=== PATIENT | male | born 1930 | race Caucasian/White ===

== ENCOUNTER 2017-10-14 10:04 | Inpatient (IN) | payer MEDICARE ==
--- NOTE | 2017-10-14 11:02 | RAD ---
PORTABLE CHEST: HISTORY: A patient with lung cancer with cough. COMPARISON: 09/01/2016 study. FINDINGS: Heart size is within normal limits for portable technique with a pacemaker. Bibasilar pleural and pa renchymal lung changes would suggest effusions with bibasilar infiltrates or, less likely, atelectasi s. Changes are not typical for pulmonary edema. IMPRESSION: Bibasilar parenchymal lung changes also with some pleural changes more pronounced on the left base. Changes suggest bibasilar infiltrate. POS: [facility]
[2017-10-14 11:13] LABS: #Lymphocytes 0.9 thou/uL (1.20-3.40); #Monocytes 0.3 thou/uL (0.11-0.59); #Neutrophils 8.3 thou/uL (1.40-6.50); %Basophils 0.2 % (0.0-1.0); %Eosinophils 0.2 % (0.0-10.0); %Lymphocytes 8.9 % (21.0-51.0); %Monocytes 3.5 % (0.0-10.0); %Neutrophils 87.2 % (42.0-75.0); Hemoglobin 12.7 g/dL (14.0-18.0); Mean Corpuscular HGB CONC 32.9 g/dL (32.0-36.0); Mean Corpuscular Hemoglobin 33.2 pg (27.0-31.0); Mean Platelet Volume 11.2 fL (7.4-10.4); Platelet Count 158 thou/uL (130-400); RBC Distribution Width 16.1 % (11.5-14.5); Red Blood Cell (RBC) Count 3.82 mill/uL (4.70-6.10); White Blood Cell (WBC) Count 9.6 thou/uL (4.8-10.8)
[2017-10-14 11:35] LABS: ALT (SGPT) 8 U/L (8-55); AST (SGOT) 22 U/L (5-34); Albumin 3.1 g/dL (3.4-4.8); Alkaline Phosphatase 179 U/L (40-150); Anion Gap 16 mmol/L (10-20); BUN (Urea Nitrogen) 17 mg/dL (8.4-25.7); Bilirubin, Total 1.4 mg/dL (0.2-1.2); Calc. Creatinine Clearance 0 mL/min (70-130); Calcium 9.4 mg/dL (7.8-10.44); Carbon Dioxide 25 mmol/L (23-31); Chloride 102 mmol/L (98-107); Estimated GFR-MDRD 67; Globulin 4.3 g/dL (2.4-3.5); Glucose 111 mg/dL (83-110); Protein, Total 7.4 g/dL (5.8-8.1); Sodium 139 mmol/L (136-145)
[2017-10-14] MEDS ORDERED: Piperacillin/Tazobactam 4.5 GM in Sodium Chloride 0.9% 100 ML IVPB ONE (11:45)
[2017-10-14 11:52] LABS: Bilirubin Negative (Negative); Blood, Urine Large (Negative); Clarity CLOUDY (Clear); Glucose, Urine (Dipstick) Negative (Negative); Leukocyte Moderate (Negative); Nitrite Positive (Negative); Protein, Urine (Dipstick) 30 mg/dL (Neg-Trace); Specific Gravity, Urine 1.021 (1.002-1.036); pH, Urine 6.5 (5.0-9.0)
[2017-10-14 11:55] LABS: Bacteria/HPF 4+ HPF (None Seen); Hyaline Casts/LPF 0-3 HYALINE CAST LPF (0-3 Hyaline); Squamous Epithelial None Seen HPF (0-3)
[2017-10-14 11:57] LABS: Yeast-AUWi Flag 443.2 (0-25.0)
[2017-10-14 12:07] LABS: RBC/HPF GREATER THAN 50-TNTC HPF (0-3)
[2017-10-14 12:08] LABS: Yeast-All Forms None Seen HPF (None Seen)
--- NOTE | 2017-10-14 13:18 | ULT ---
GALLBLADDER ULTRASOUND: HISTORY: Right upper quadrant pain. FINDINGS: Real-time imaging of the right upper quadrant was performed. The exam is limited due to patient's di fficulty cooperating with breathing and continued movement. The gallbladder is not well-visualized. There is an area in the gallbladder fossa which may be a contracted gallbladder. The common duct is also difficult to visualize. On one image, the duct appears to measure in the 7 mm range, but on ot her images, it appears to be nondilated. The liver parenchyma is difficult to visualize. It is hete rogeneous. There is a 3.8 cm right lobe liver cyst present. Right kidney is normal in size. There is a hypoechoic area within the right kidney which appears to represent a cyst that measures 2 cm in size, similar to a previous 2013 study. Pancreas is obscured. IMPRESSION: 1. Limited examination due to bowel gas and patient's difficulty in cooperating. The gallbladder is difficult to definitively visualize and may be contracted. 2. Heterogeneous-appearing liver parenchyma. There is a 3.8 cm right lobe liver cyst noted. 3. A 2-cm upper pole right renal cyst. POS: [facility]
[2017-10-14] MEDS ORDERED: Ondansetron HCl/PF 4 MG/2 ML Vial IVP PRN (15:04)
[2017-10-14] MEDS ORDERED: Acetaminophen 650 MG Suppository PR PRN (15:04)
[2017-10-14] MEDS ORDERED: Sodium Chloride 0.9% 1,000 ML IV SCH (15:04)
[2017-10-14] MEDS ORDERED: Acetaminophen 325 MG TAB PO PRN (15:04)
[2017-10-14 15:32] LABS: Lactic Acid 1.4 mmol/L (0.5-2.2)
--- NOTE | 2017-10-14 15:57 | HP ---
PRIMARY CARE PHYSICIAN: Dr. Rojas. CHIEF COMPLAINT: Weakness, fever, unable to stand. HISTORY OF PRESENT ILLNESS: Mr. Lockhart is a pleasant 87-year-old gentleman that has multiple medica l problems including hypertension, coronary artery disease, atrial fibrillation, and chronic systolic and diastolic heart failure. He was brought in to the hospital by family members after they noticed him becoming weak in the last couple of days and his who is the historian says that earlier tod ay he seems disoriented and she gives an example when she would ask him how he is feeling, he would j ust keep saying "I don't know" and seemed to be moaning and not really talking where he normally does . He did mention that his back hurt at the top and she says that he seemed to be breathing fast and more shallow lately. She also noted that he has been having a cough and phlegm. She says that she d id not really think much of it and has been going on for about 2-3 months, but in the last couple of days, it began to become greyish brown in color and also some more thick. She also says that his julieta etite has diminished and she noticed this morning that he had fever with a temperature up to 100 and could not get him up and for this reason, they called EMS and had him brought to the hospital. In e ER, he was evaluated. He had a chest x-ray which demonstrated bibasilar infiltrates and he also cantu s a urinalysis which is significant for positive nitrites and 4+ bacteria as well as too numerous to count wbc's. For this reason, he is being admitted for pneumonia as well as urinary tract infection. REVIEW OF SYSTEMS: Unobtainable as the patient is more or less weak and lethargic and unable to add too much additional. PAST MEDICAL HISTORY: Taken from previous history and physical dated 12/19/[address] Koki andrew nd includes chronic systolic and diastolic heart failure, hypertension, SIADH, gout, tobacco abuse, a trial fibrillation, coronary artery disease, and recently diagnosed with lung cancer or tongue cancer . PAST SURGICAL HISTORY: He has had a hernia repair, foot surgery, partial tongue removal, and a pacem hellen placement. SOCIAL HISTORY: He is . He smokes a few cigars daily. He denies any alcohol use. The patie nt is more or less sedentary. He walks with a walker, but extremely slow, but he can dress himself a nd he can get in and out of bed on his own. CODE STATUS: His says he would not want to be placed on a ventilator or resuscitated if his con dition were futile, but she does not know in an acute setting. Therefore, he will be FULL CODE for r ight now and his surrogate decision maker is his . FAMILY HISTORY: Significant for colon cancer. ALLERGIES: No known drug allergies. CURRENT MEDICATIONS: Include aspirin 81 mg daily, gabapentin 300 mg 4 times a day, Lasix 20 mg daily , metoprolol 50 mg twice a day, potassium chloride 10 mEq daily, docusate 100 mg twice a day, folic a rohit 1 mg daily, allopurinol 100 mg twice a day, pentoxifylline 400 mg t.i.d., albuterol nebs q.4., ca lcium plus vitamin D daily, flunisolide nasal spray, Oxytocin 10 mg once daily. PHYSICAL EXAMINATION: GENERAL: He is lying on the stretcher. He is arousable, but quite lethargic. He is ill-appearing. VITAL SIGNS: Blood pressure was 162/79, heart rate 63, respiratory rate 20, temperature is 99.4. HEENT: Pupils are equal, round, and reactive. Extraocular muscles are intact. Sclerae are anicteri c. Throat, no erythema. He has got dry mucous membranes, poor dentition. NECK: There is no adenopathy, no bruits. LUNGS: He has got quite a bit of upper airway noise and rhonchi as well as some rales. CARDIOVASCULAR: His heart rate is slightly tachycardic, it is regular. I do not appreciate any murm urs, clicks, or rubs. ABDOMEN: Soft. He has some diffuse tenderness. It is very difficult for him to localize. There is no rebound or guarding, however. EXTREMITIES: He has got trace edema. He has decreased pulses, in fact not able to palpate his dorsa lis pedis or posterior tibial pulses. However, his feet are warm and dry. He does have some ulnar d eviation and hammertoe deformity of both feet as well as shallow ulcer on the first toes of both feet . NEUROLOGIC: The exam is nonfocal. LABORATORY RESULTS: Urinalysis shows 4+ bacteria, positive nitrites, too numerous to count wbc's as well as rbc's. White blood cell 9.6, hemoglobin 12.7, hematocrit is 38.6, platelet count is 153. So dium 139, potassium 4.0, chloride is 102, CO2 is 25, BUN of 17, creatinine 1.05, glucose is 111, tota l bilirubin was 1.4, AST and ALT are 22 and 8, alkaline phosphatase is slightly elevated at 149. [address] x-ray showed bibasilar infiltrates and there is some obscuration of both the costophrenic angles, likely representing bilateral pleural effusions. This is by my reading. ASSESSMENT: 1. This is a pleasant 87-year-old gentleman who presents to the emergency room with generalized weak ness, fever, decreased appetite, and findings to suggest bilateral infiltrates and urinary tract infe ction. He will be admitted to telemetry for pneumonia, urinary tract infection, with encephalopathy. For the pneumonia and infection, we will place him on broad spectrum IV antibiotics for broad cover age including Zosyn and vancomycin. We will also add Levaquin in case the urinary tract infection is resistant to penicillin. Blood and urine cultures should have been done in the ER and if not, these will be obtained. 2. For the elevated bilirubin, the etiology of this is unclear. An abdominal ultrasound has been do ne in the ER. We will follow up with those results and address treatment as indicated. 3. Chronic atrial fibrillation. He appears to be in sinus rhythm now with a controlled rate. We wi ll continue to monitor this and likely place him back on his oral medications once he is stable enoug h to swallow. 4. Hypertension. This can be treated with p.r.n. medications until it is deemed him safe to swallow . 5. He will be placed on gastrointestinal and deep vein thrombosis prophylaxis.
[2017-10-14] MEDS: Piperacillin/Tazobactam 3.375 GM in Sodium Chloride 0.9% 100 ML IVPB SCH ×2 (18:34→23:45)
[2017-10-14] MEDS: Dextrose 5 % And 0.9 % NaCl 1,000 ML IV SCH (18:34)
[2017-10-14] MEDS: Famotidine/PF 20 mg/2ml Vial SLOW IVP SCH (20:51)
[2017-10-14] MEDS ORDERED: Vancomycin HCl 1 GM in Premix Bag 1 BAG IVPB SCH (23:00)
[2017-10-14] MEDS: Vancomycin HCl 1 GM in Premix Bag 1 BAG IVPB SCH (23:52)
[2017-10-15 06:27] LABS: Anion Gap 12 mmol/L (10-20); BUN (Urea Nitrogen) 16 mg/dL (8.4-25.7); Calc. Creatinine Clearance 85 mL/min (70-130); Calcium 8.5 mg/dL (7.8-10.44); Carbon Dioxide 23 mmol/L (23-31); Chloride 107 mmol/L (98-107); Estimated GFR-MDRD 83; Glucose 116 mg/dL (83-110); Potassium 3.1 mmol/L (3.5-5.1); Sodium 139 mmol/L (136-145)
[2017-10-15 06:43] LABS: #Lymphocytes 0.8 thou/uL (1.20-3.40); #Monocytes 0.5 thou/uL (0.11-0.59); #Neutrophils 7.5 thou/uL (1.40-6.50); %Basophils 0.3 % (0.0-1.0); %Eosinophils 0.5 % (0.0-10.0); %Lymphocytes 9.3 % (21.0-51.0); %Monocytes 5.6 % (0.0-10.0); %Neutrophils 84.4 % (42.0-75.0); Hemoglobin 11.8 g/dL (14.0-18.0); MDiff Complete? YES; Macrocytosis SLIGHT = 6-15 cells (100X) (0-5/hpf); Mean Corpuscular HGB CONC 32.6 g/dL (32.0-36.0); Mean Platelet Volume 9.6 fL (7.4-10.4); PLT Morphology Comment Appears Decreased; Platelet Count 102 thou/uL (130-400); RBC Distribution Width 15.9 % (11.5-14.5); Red Blood Cell (RBC) Count 3.57 mill/uL (4.70-6.10); White Blood Cell (WBC) Count 8.8 thou/uL (4.8-10.8)
[2017-10-15] MEDS: Piperacillin/Tazobactam 3.375 GM in Sodium Chloride 0.9% 100 ML IVPB SCH ×2 (07:05→11:35)
[2017-10-15] MEDS: Famotidine/PF 20 mg/2ml Vial SLOW IVP SCH ×2 (08:32→22:24)
[2017-10-15] MEDS: hydrALAZINE 20 MG/ML VIAL SLOW IVP PRN ×2 (08:32→15:48)
[2017-10-15] MEDS: Enoxaparin Sodium 40 MG/0.4 ML SYRINGE SC SCH (08:32)
[2017-10-15] MEDS ORDERED: FlunisoLIDE 0.025% Nasal Spray 25 ml Bottle EA NARE PRN (12:48)
[2017-10-15] MEDS: Dextrose 5 % And 0.9 % NaCl 1,000 ML IV SCH (12:49)
[2017-10-15] MEDS: Vancomycin HCl 1 GM in Premix Bag 1 BAG IVPB SCH ×2 (12:54→23:12)
[2017-10-15] MEDS ORDERED: Furosemide 20 MG TAB PO PRN (13:04)
[2017-10-15] MEDS ORDERED: HYDROcodone/Acetaminophen 10/325 mg Tablet PO PRN (13:04)
--- NOTE | 2017-10-15 13:07 | PDOC.PN ---
- Subjective Encounter Start Date: 10/15/17 Encounter Start Time: 13:05 Mr. Lockhart was seen today in follow-up of Pneumonia, and UTI. He is more confused and restless today according to his . He says he doesn't feel well , and feels a bit short of breath. - Objective Resuscitation Status: Resuscitation Status FULL:Full Resuscitation MAR Reviewed: Yes Vital Signs & Weight: Vital Signs (12 hours) Temp Pulse Resp BP BP Pulse Ox 10/15/17 11:31 98.8 F 63 20 182/86 H 96 10/15/17 09:55 184/95 H 10/15/17 08:35 98.2 F 72 20 96 10/15/17 08:32 72 182/84 H 10/15/17 08:30 98.2 F 72 20 182/84 H 96 10/15/17 07:00 64 16 94 L 10/15/17 04:30 61 18 134/86 96 Weight Weight 212 lb 7 oz I&O: 10/14/17 10/15/17 10/16/17 06:59 06:59 06:59 Intake Total 1220 Output Total 275 Balance 945 Result Diagrams: 10/15/17 05:19 10/15/17 05:19 Phys Exam - Physical Examination HEENT: PERRLA Respiratory: no wheezing + less upper airway noise, + rales at the bases Cardiovascular: RRR, no significant murmur, no rub Gastrointestinal: soft, non-tender, positive bowel sounds Musculoskeletal: no edema Dx/Plan (1) Pneumonia, community acquired Code(s): J18.9 - PNEUMONIA, UNSPECIFIED ORGANISM Status: Acute (2) Acute respiratory failure Code(s): J96.00 - ACUTE RESPIRATORY FAILURE, UNSP W HYPOXIA OR HYPERCAPNIA Status: Acute (3) Metabolic encephalopathy Code(s): G93.41 - METABOLIC ENCEPHALOPATHY Status: Acute (4) Chronic systolic heart failure Code(s): I50.22 - CHRONIC SYSTOLIC (CONGESTIVE) HEART FAILURE Status: Chronic (5) Diabetes mellitus type 2 in nonobese Code(s): E11.9 - TYPE 2 DIABETES MELLITUS WITHOUT COMPLICATIONS Status: Chronic (6) Essential (primary) hypertension Code(s): I10 - ESSENTIAL (PRIMARY) HYPERTENSION Status: Chronic (7) UTI (urinary tract infection), bacterial Code(s): N39.0 - URINARY TRACT INFECTION, SITE NOT SPECIFIED; A49.9 - BACTERIAL INFECTION, UNSPECIFIED Status: Acute - Plan * Pneumonia with metabolic encephalopathy- blood culture is positive for Strep Pneumonia- will continue Levaquin * UTI- is growing a staph spp. - will continue Vancomycin and await sensitivities * Chronic systolic heart failure- he may be a bit volume overloaded- will give a dose of Lasix IV, and re-start his home medications * HTN- blood pressure is elevated- will re-start home medications as well as PRN 's * DM- blood glucose is stable * PT/OT.
[2017-10-15] MEDS ORDERED: Furosemide 40 MG/4 ML VIAL SLOW IVP SCH (13:30)
[2017-10-15] MEDS ORDERED: Haloperidol 1 MG TAB PO SCH (13:30)
[2017-10-15 16:35] VITALS: BMI 25.2
[2017-10-15] MEDS: Labetalol HCl 100 MG/20 ML VIAL SLOW IVP PRN (17:39)
[2017-10-15] MEDS: Lorazepam 0.5 MG TAB PO PRN ×2 (17:41→20:55)
[2017-10-15] MEDS: Gabapentin 300 MG CAP PO SCH (20:55)
[2017-10-15] MEDS: Allopurinol 100 MG TAB PO SCH (21:40)
[2017-10-15] MEDS: Docusate 100 MG CAP PO SCH (21:40)
[2017-10-15] MEDS ORDERED: Sterile Water 10 ML VIAL FS SCH (22:00)
[2017-10-15] MEDS ORDERED: Ziprasidone 20 MG VIAL IM SCH (22:00)
[2017-10-15 23:19] LABS: Vancomycin, Trough 16.4 ug/mL
[2017-10-16] MEDS: Labetalol HCl 100 MG/20 ML VIAL SLOW IVP PRN (00:58)
[2017-10-16] MEDS ORDERED: traZODone HCl 50 MG TAB PO PRN (05:14)
[2017-10-16] MEDS ORDERED: Furosemide 20 MG/2 ML VIAL SLOW IVP SCH (05:15)
[2017-10-16 06:41] LABS: #Lymphocytes 0.8 thou/uL (1.20-3.40); #Monocytes 0.6 thou/uL (0.11-0.59); #Neutrophils 10.2 thou/uL (1.40-6.50); %Basophils 0.3 % (0.0-1.0); %Eosinophils 0.3 % (0.0-10.0); %Lymphocytes 6.7 % (21.0-51.0); %Monocytes 5.3 % (0.0-10.0); %Neutrophils 87.4 % (42.0-75.0); Hemoglobin 11.9 g/dL (14.0-18.0); Mean Corpuscular HGB CONC 32.1 g/dL (32.0-36.0); Mean Corpuscular Hemoglobin 32.6 pg (27.0-31.0); Mean Platelet Volume 9.6 fL (7.4-10.4); Platelet Count 115 thou/uL (130-400); RBC Distribution Width 15.7 % (11.5-14.5); Red Blood Cell (RBC) Count 3.66 mill/uL (4.70-6.10); White Blood Cell (WBC) Count 11.7 thou/uL (4.8-10.8)
[2017-10-16 06:50] LABS: Anion Gap 17 mmol/L (10-20); BUN (Urea Nitrogen) 17 mg/dL (8.4-25.7); Calc. Creatinine Clearance 76 mL/min (70-130); Calcium 8.7 mg/dL (7.8-10.44); Carbon Dioxide 23 mmol/L (23-31); Chloride 104 mmol/L (98-107); Estimated GFR-MDRD 76; Glucose 83 mg/dL (83-110); Sodium 141 mmol/L (136-145)
[2017-10-16 06:58] LABS: Potassium 2.8 mmol/L (3.5-5.1)
--- NOTE | 2017-10-16 08:28 | RAD ---
PORTABLE CHEST 1 VIEW: DATE: 10/16/17. TIME: 5:34 a.m. HISTORY: Tachypnea, lung cancer with cough. FINDINGS/IMPRESSION: Comparison is made with the exam of 10/14/17. A left-sided pacing device remains in place. Heart size is normal. Bilateral pleural parenchymal ch anges demonstrate mild interval worsening. No pneumothoraces are seen. POS: [facility]
[2017-10-16] MEDS: Famotidine/PF 20 mg/2ml Vial SLOW IVP SCH ×2 (10:23→22:01)
[2017-10-16] MEDS: Docusate 100 MG CAP PO SCH ×2 (10:23→21:55)
[2017-10-16] MEDS: Gabapentin 300 MG CAP PO SCH ×3 (10:24→21:55)
[2017-10-16] MEDS: Dextrose 5 % And 0.9 % NaCl 1,000 ML IV SCH ×2 (10:24→13:04)
[2017-10-16] MEDS: Folic Acid 1 MG TAB PO SCH (10:24)
[2017-10-16] MEDS: Allopurinol 100 MG TAB PO SCH ×2 (10:24→22:01)
[2017-10-16] MEDS: Aspirin 325 MG TAB PO SCH (10:24)
[2017-10-16] MEDS: Oxybutynin ER 5 MG TAB PO SCH (10:24)
[2017-10-16] MEDS: Enoxaparin Sodium 40 MG/0.4 ML SYRINGE SC SCH (10:25)
[2017-10-16] MEDS ORDERED: Losartan Potassium 25 MG TAB PO SCH ×2 (11:15→11:30)
--- NOTE | 2017-10-16 11:16 | PDOC.PN ---
- Subjective Encounter Start Date: 10/16/17 Encounter Start Time: 11:14 Mr. Lockhart was seen today in follow-up. His confusion has gotten worse last night. He has been picking at things, and trying to get out of bed. He was given ativan and haldol without much help. He was given Geodon which helped for about 15 minutes. He ultimately had to be placed in restraints to repvent self harm. - Objective Resuscitation Status: Resuscitation Status FULL:Full Resuscitation MAR Reviewed: Yes Vital Signs & Weight: Vital Signs (12 hours) Temp Pulse Resp BP BP Pulse Ox 10/16/17 07:20 99.5 F 85 18 163/85 H 99 10/16/17 06:59 97 10/16/17 06:55 68 22 H 97 10/16/17 05:24 68 18 180/88 H 94 L 10/16/17 04:00 96 10/16/17 01:08 83 36 H 157/72 H 96 10/16/17 00:58 99.0 F 87 32 H 194/92 H 194/92 H 90 L 10/15/17 23:47 95 Weight Weight 205 lb 5 oz I&O: 10/15/17 10/16/17 10/17/17 06:59 06:59 06:59 Intake Total 1220 344.5 Output Total 275 1775 Balance 945 -1430.5 Result Diagrams: 10/16/17 05:42 10/16/17 05:42 Phys Exam - Physical Examination HEENT: PERRLA + rhonchi bilaterally , and upper airway noise Cardiovascular: RRR, no significant murmur Gastrointestinal: soft, non-tender, positive bowel sounds Musculoskeletal: edema present trace edema Dx/Plan (1) Pneumonia, community acquired Code(s): J18.9 - PNEUMONIA, UNSPECIFIED ORGANISM Status: Acute (2) Acute respiratory failure Code(s): J96.00 - ACUTE RESPIRATORY FAILURE, UNSP W HYPOXIA OR HYPERCAPNIA Status: Acute (3) Metabolic encephalopathy Code(s): G93.41 - METABOLIC ENCEPHALOPATHY Status: Acute (4) Chronic systolic heart failure Code(s): I50.22 - CHRONIC SYSTOLIC (CONGESTIVE) HEART FAILURE Status: Chronic (5) Diabetes mellitus type 2 in nonobese Code(s): E11.9 - TYPE 2 DIABETES MELLITUS WITHOUT COMPLICATIONS Status: Chronic (6) Essential (primary) hypertension Code(s): I10 - ESSENTIAL (PRIMARY) HYPERTENSION Status: Chronic (7) UTI (urinary tract infection), bacterial Code(s): N39.0 - URINARY TRACT INFECTION, SITE NOT SPECIFIED; A49.9 - BACTERIAL INFECTION, UNSPECIFIED Status: Acute (8) Hypokalemia Code(s): E87.6 - HYPOKALEMIA Status: Acute - Plan * Acute Hypoxic respiratory failure- chect X-ray demonstrates worsening infiltrates- this may be due to pneumonia or volume overload- will re-check his BNP, may need to give an additional dose of IV Lasix * UTI- urine culture is positive for MRSA- unusual organism- will consult ID. Continue Vancomycin * Delirium- likely from Pneumonia, and UTI, possibly from CHF- will treat underlying conditions, and use sedatives only when necessary * Hypokalemia- replace * HTN- blood pressure is better.
[2017-10-16] MEDS ORDERED: Potassium Chloride 10 MEQ TAB PO PRN (11:45)
[2017-10-16] MEDS ORDERED: Potassium Chloride 40 MEQ in Sodium Chloride 0.9% 250 ML 250 ML IVPB SCH (11:45)
[2017-10-16] MEDS: Vancomycin HCl 1 GM in Premix Bag 1 BAG IVPB SCH (12:39)
[2017-10-16] MEDS ORDERED: cloNIDine 0.1mg/24 Hour PATCH TD SCH (13:00)
[2017-10-16] MEDS: Furosemide 40 MG/4 ML VIAL SLOW IVP SCH ×2 (13:39→18:26)
[2017-10-16] MEDS: Potassium Chloride 10 MEQ in Dextrose 5 % And 0.9 % NaCl 1,000 ML IV SCH (13:40)
--- NOTE | 2017-10-16 17:09 | CON ---
DATE OF CONSULTATION: 10/16/2017 REASON FOR CONSULTATION: Pneumonia with bacteremia and abnormal urine findings. 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 Initial exam; BP 160/79 , heart rate 63, respirations 20, temperature 99.4. Pertinent findings; lung rhonchi and inspiratory crackles at the bases, tachycardia, and some tenderness in the abdominal examination. Initial labs with abnormal urinalysis with too numerous to count wbc's, white cell count 9.6, hemoglobin 12.7, platelets 153, creatinine 1.05, bilirubin 1.4. Chest x-ray with bibasilar infiltrates. The patient has been given vancomycin and levofloxacin. Cultures have yielded strep pneumonia which is resistant to clindamycin, erythromycin, Bactrim, and tetracycline. MRSA was retrieved from urine culture. Influenza A and B negative. Currently, Mr. Lockhart is awake, but does not interact with examiner, still fidgety and delirious. Has had no diarrhea. He is voiding spontaneously. No history of seizure activity. 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 PAST SURGICAL HISTORY: Hernia repair, pacemaker placement. SOCIAL HISTORY: Current smoker and lives in [place] with family. ALLERGIES: None. FAMILY HISTORY: Colon cancer. MEDICATIONS: Currently on Tylenol, [place], DuoNeb, Zyloprim, aspirin, Catapres, Colace, Lovenox, famotidine, nasalide, folate, Lasix, Neurontin, levofloxacin, and vancomycin. PHYSICAL EXAMINATION: VITAL SIGNS: The patient has been afebrile now, temperature went up a bit to 99.5. BP 160/82, pulse 69-78, respiratory rate 20, O2 sat 96% on 4 liters. SKIN: There is ulceration in the medial left first toe which appears superficial. Some scabs in the right first toe MPJ. No Stoll catheter. No lymphadenopathy. HEENT: Ocular movements are conjugate. Oral cavity with dry oral mucosa. NECK: Supple. LUNGS: Scattered coarse rhonchi, few crackles at the bases. HEART: Diminished heart sounds, S1 and S2, regular rate. ABDOMEN: Soft, not distended or tender. No bladder distention. EXTREMITIES: The patient moving all extremities equally. Plantar responses are flexor. Pulses diminished in dorsalis pedis. He is awake, but does not establish eye contact or follow commands. LABORATORY DATA: White cell count 9.6 and 11.7, hemoglobin 11.9, platelets 115 , 87% neutrophils. Sodium 141, creatinine 0.94. Bilirubin 1.4, AST 22, ALT 8, alkaline phosphatase 179. BNP 953. Vancomycin trough 16.4. ASSESSMENT: 1. Lung cancer, lymph node mets, status post chemoradiation. 2. Pacemaker. 3. Streptococcus pneumonia bacteremia with pneumonitis. 4. Abnormal urinalysis with positive urine cultures, probably serendipitous finding, may be associated with mild cystitis. No evidence of other invasive features. Abdominal ultrasound did not show any obstruction. 5. Delirium. DISCUSSION: The main factor contributing to the clinical findings is the invasive Streptococcus pneumonia infection. We will switch him to Rocephin since levofloxacin can have central nervous system adverse reactions. Discontinue vancomycin. He has already received 3 days and I do not think there is any evidence to suggest a more invasive phenomenon and check postvoid bladder residual with ultrasound. Management of delirium with the usual measures, usually multifactorial. I do not see any evidence to suggest focal neurological findings at this time. Pending on clinical progress, may need imaging studies, particularly a CT of brain. I believe at this time, it is more likely to be multifactorial related to the acute infection with bacteremia. ANGELD
[2017-10-16] MEDS: cefTRIAXone\\ROCEPHIN 2 GM in Sodium Chloride 0.9% 100 ML IVPB SCH (17:47)
[2017-10-16] MEDS: Ziprasidone 20 MG VIAL IM PRN (17:48)
[2017-10-16] MEDS: Lorazepam 2 MG/ML VIAL SLOW IVP PRN (21:51)
[2017-10-17 05:12] LABS: #Lymphocytes 1.2 thou/uL (1.20-3.40); #Monocytes 0.7 thou/uL (0.11-0.59); #Neutrophils 9.6 thou/uL (1.40-6.50); %Basophils 0.3 % (0.0-1.0); %Eosinophils 0.3 % (0.0-10.0); %Lymphocytes 10.1 % (21.0-51.0); %Monocytes 5.8 % (0.0-10.0); %Neutrophils 83.6 % (42.0-75.0); Hemoglobin 12.3 g/dL (14.0-18.0); Mean Corpuscular HGB CONC 31.9 g/dL (32.0-36.0); Mean Corpuscular Hemoglobin 32.6 pg (27.0-31.0); Mean Platelet Volume 9.5 fL (7.4-10.4); Platelet Count 121 thou/uL (130-400); Red Blood Cell (RBC) Count 3.77 mill/uL (4.70-6.10); White Blood Cell (WBC) Count 11.5 thou/uL (4.8-10.8)
[2017-10-17 05:16] LABS: Anion Gap 14 mmol/L (10-20); BUN (Urea Nitrogen) 21 mg/dL (8.4-25.7); Calc. Creatinine Clearance 68 mL/min (70-130); Calcium 8.5 mg/dL (7.8-10.44); Carbon Dioxide 27 mmol/L (23-31); Chloride 106 mmol/L (98-107); Estimated GFR-MDRD 68; Glucose 89 mg/dL (83-110); Potassium 3.1 mmol/L (3.5-5.1); Sodium 144 mmol/L (136-145)
[2017-10-17] MEDS: Furosemide 40 MG/4 ML VIAL SLOW IVP SCH (06:38)
[2017-10-17] MEDS: Allopurinol 100 MG TAB PO SCH ×2 (09:38→22:50)
[2017-10-17] MEDS: Docusate 100 MG CAP PO SCH ×2 (09:38→22:50)
[2017-10-17] MEDS: Aspirin 325 MG TAB PO SCH (09:38)
[2017-10-17] MEDS: Folic Acid 1 MG TAB PO SCH (09:38)
[2017-10-17] MEDS: Gabapentin 300 MG CAP PO SCH ×3 (09:39→22:50)
[2017-10-17] MEDS: Oxybutynin ER 5 MG TAB PO SCH (09:39)
[2017-10-17] MEDS: Losartan Potassium 25 MG TAB PO SCH (09:39)
[2017-10-17] MEDS: Famotidine/PF 20 mg/2ml Vial SLOW IVP SCH ×2 (10:05→23:39)
[2017-10-17] MEDS: Enoxaparin Sodium 40 MG/0.4 ML SYRINGE SC SCH (10:05)
[2017-10-17] MEDS: Potassium Chloride 10 MEQ in Dextrose 5 % And 0.9 % NaCl 1,000 ML IV SCH ×2 (10:07→23:39)
[2017-10-17] MEDS: Ziprasidone 20 MG VIAL IM PRN (10:50)
[2017-10-17] MEDS ORDERED: Potassium Chloride 40 MEQ in Sodium Chloride 0.9% 250 ML 250 ML IVPB SCH (11:45)
[2017-10-17] MEDS: Lorazepam 2 MG/ML VIAL SLOW IVP PRN (12:11)
--- NOTE | 2017-10-17 13:43 | PDOC.PN ---
- Subjective Encounter Start Date: 10/17/17 Encounter Start Time: 13:42 Mr. Lockhart was seen today in follow-up of Pneumonia. He continues to be confused. He finally calmed down after he was given Ativan and Geodon. His family says he does not have any baseline dementia that they are aware of. - Objective Resuscitation Status: Resuscitation Status FULL:Full Resuscitation MAR Reviewed: Yes Vital Signs & Weight: Vital Signs (12 hours) Temp Pulse Resp BP BP Pulse Ox 10/17/17 12:00 98.3 F 86 24 H 170/89 H 98 10/17/17 08:28 95 10/17/17 08:27 86 20 10/17/17 07:35 98.3 F 85 18 170/82 H 96 10/17/17 07:25 98.3 F 85 18 97 10/17/17 05:00 98.7 F 77 28 H 152/72 H 97 Weight Weight 204 lb 6 oz I&O: 10/16/17 10/17/17 10/18/17 06:59 06:59 06:59 Intake Total 344.5 1016 Output Total 1775 Balance -1430.5 1016 Result Diagrams: 10/17/17 04:32 10/17/17 04:32 Phys Exam - Physical Examination HEENT: PERRLA Respiratory: no wheezing + rales at the bases Cardiovascular: RRR, no significant murmur Gastrointestinal: soft, non-tender, positive bowel sounds Musculoskeletal: no edema Dx/Plan (1) Pneumonia, community acquired Code(s): J18.9 - PNEUMONIA, UNSPECIFIED ORGANISM Status: Acute (2) Acute respiratory failure Code(s): J96.00 - ACUTE RESPIRATORY FAILURE, UNSP W HYPOXIA OR HYPERCAPNIA Status: Acute (3) Metabolic encephalopathy Code(s): G93.41 - METABOLIC ENCEPHALOPATHY Status: Acute (4) Chronic systolic heart failure Code(s): I50.22 - CHRONIC SYSTOLIC (CONGESTIVE) HEART FAILURE Status: Chronic (5) Diabetes mellitus type 2 in nonobese Code(s): E11.9 - TYPE 2 DIABETES MELLITUS WITHOUT COMPLICATIONS Status: Chronic (6) Essential (primary) hypertension Code(s): I10 - ESSENTIAL (PRIMARY) HYPERTENSION Status: Chronic (7) UTI (urinary tract infection), bacterial Code(s): N39.0 - URINARY TRACT INFECTION, SITE NOT SPECIFIED; A49.9 - BACTERIAL INFECTION, UNSPECIFIED Status: Acute (8) Hypokalemia Code(s): E87.6 - HYPOKALEMIA Status: Acute - Plan * Pneumonia with Bacteremia- continue Rocephin- repeat CXR in 1-2 days * Delirium- hopefully will improve with continued treatment of Pneumonia- if no improvement in a day or two then consider CT-brain * HTN - blood pressure is stable * Hypokalemia- replace potassium * Patient is NPO due to difficulty swallowing from confusion, if this persists then will need an alternate means of nutrition
[2017-10-17] MEDS ORDERED: D10W AA 8.5% With Lytes 1000 ML BAG IV SCH (14:00)
[2017-10-17] MEDS ORDERED: PPN Hyperalimentation 1,000 ML IV SCH (16:15)
[2017-10-17] MEDS: cefTRIAXone\\ROCEPHIN 2 GM in Sodium Chloride 0.9% 100 ML IVPB SCH (17:47)
--- NOTE | 2017-10-17 17:56 | PDOC.EVN ---
Event Note - Event Note Event Note: Patient was re-evaluated this evening. He appears to have calmed down more. His breathing a less labored. Lungs- + rhonchi bilaterally, slightly decreased. PPN to be started, and will cut the IV fluids back. Re- assess in AM.
[2017-10-18] MEDS: Labetalol HCl 100 MG/20 ML VIAL SLOW IVP PRN ×4 (00:11→20:53)
[2017-10-18] MEDS: Lorazepam 2 MG/ML VIAL SLOW IVP PRN ×2 (00:26→08:12)
[2017-10-18] MEDS: Allopurinol 100 MG TAB PO SCH ×2 (08:05→21:48)
[2017-10-18] MEDS: Gabapentin 300 MG CAP PO SCH ×3 (08:06→21:49)
[2017-10-18] MEDS: Folic Acid 1 MG TAB PO SCH (08:06)
[2017-10-18] MEDS: Aspirin 325 MG TAB PO SCH (08:06)
[2017-10-18] MEDS: Losartan Potassium 25 MG TAB PO SCH (08:06)
[2017-10-18] MEDS: Oxybutynin ER 5 MG TAB PO SCH (08:06)
[2017-10-18] MEDS: Docusate 100 MG CAP PO SCH ×2 (08:06→21:48)
[2017-10-18] MEDS: hydrALAZINE 20 MG/ML VIAL SLOW IVP PRN (08:12)
[2017-10-18] MEDS: Famotidine/PF 20 mg/2ml Vial SLOW IVP SCH ×2 (08:12→21:48)
[2017-10-18] MEDS: Enoxaparin Sodium 40 MG/0.4 ML SYRINGE SC SCH (08:13)
--- NOTE | 2017-10-18 11:04 | PQF ---
CLINICAL DOCUMENTATION IMPROVEMENT CLARIFICATION FORM: ICD-10 Updated PLEASE DO AN ADDENDUM TO THE PROGRESS NOTE WITH ANY DOCUMENTATION UPDATES OR ADDITIONS AND CARRY THROUGH TO DC SUMMARY. THANK YOU. DATE: 10/18/17 ATTN: DR. SRIVASTAVA Please exercise your independent, professional judgment in responding to the clarification form. Clinical indicators are provided on the bottom of this form for your review Please check appropriate box(s): HEART FAILURE: A.TYPE: [ ] Systolic / HFrEF [ ] Diastolic / HFpEF [ ] Combined Systolic / Diastolic B.ACUITY [ ] Acute[ ] Acute on Chronic [ ] Chronic C.WITH (if appropriate) [ ] Hypertensive Heart Disease[ ] Hypertensive Heart and Kidney Disease [ ] Other diagnosis [ ] Unable to determine In addition, please specify: Present on Admission (POA): [ ] Yes [ ] No [ ] Unable to determine For continuity of documentation, please document condition throughout progress notes and discharge summary. Thank You. CLINICAL INDICATORS - SIGNS / SYMPTOMS / LABS NURSE NOTE 10/16: "PT CONTINUES TO BE SOB RR 32-36 W/ MOIST COUGH. SATS 88-90% ON RM AIR. PLACED ON O2 @ 3L PER NC." "PATIENT EVALUATED BY DR. VILLANUEVA. ORDER RECEIVED FOR LASIX 20MG IV AND C-XRAY. " BNP 710.7 RISKS: H/O COMBINED CHF TREATMENT: IV LASIX (10/16-10/17) SUPPLEMENTAL OXYGEN TELEMETRY MONITORING CHEST XRAY (This form is maintained as a part of the permanent medical record) 2014 [employer]. All Rights Reserved [email or web address] Office: [phone] [facility] MED[facility] CENTERWalter
[2017-10-18] MEDS ORDERED: Lorazepam 2 MG/ML VIAL SLOW IVP PRN (14:48)
--- NOTE | 2017-10-18 14:53 | PDOC.PN ---
- Subjective Encounter Start Date: 10/18/17 Encounter Start Time: 15:32 sleeping arouses to pain no n/v no cp tachypneic - Objective Resuscitation Status: Resuscitation Status FULL:Full Resuscitation MAR Reviewed: Yes Vital Signs & Weight: Vital Signs (12 hours) Temp Pulse Resp BP BP Pulse Ox 10/18/17 13:27 79 36 H 97 10/18/17 11:41 98.2 F 78 38 H 177/86 H 99 10/18/17 10:13 72 176/82 H 10/18/17 09:31 88 194/94 H 10/18/17 08:12 75 197/91 H 10/18/17 08:00 98.1 F 75 40 H 98 10/18/17 07:41 98.1 F 75 40 H 197/91 H 98 10/18/17 07:36 98 10/18/17 07:32 83 32 H 99 10/18/17 03:35 99.4 F 75 36 H 179/87 H 100 Weight Weight 204 lb 6 oz I&O: 10/17/17 10/18/17 10/19/17 06:59 06:59 06:59 Intake Total 1016 686.5 0 Balance 1016 686.5 0 Result Diagrams: 10/17/17 04:32 10/17/17 04:32 Phys Exam - Physical Examination Constitutional: NAD HEENT: PERRLA Neck: no JVD coarse bs Cardiovascular: no significant murmur Gastrointestinal: no distention Musculoskeletal: pulses present Neurological: moves all 4 limbs Psychiatric: A&O x 3 Dx/Plan (1) Acute on chronic diastolic CHF (congestive heart failure) Code(s): I50.33 - ACUTE ON CHRONIC DIASTOLIC (CONGESTIVE) HEART FAILURE Status : Acute (2) Dementia Code(s): F03.90 - UNSPECIFIED DEMENTIA WITHOUT BEHAVIORAL DISTURBANCE Status: Acute (3) Acute respiratory failure Code(s): J96.00 - ACUTE RESPIRATORY FAILURE, UNSP W HYPOXIA OR HYPERCAPNIA Status: Acute (4) Metabolic encephalopathy Code(s): G93.41 - METABOLIC ENCEPHALOPATHY Status: Acute (5) Pneumonia, community acquired Code(s): J18.9 - PNEUMONIA, UNSPECIFIED ORGANISM Status: Acute (6) Diabetes mellitus type 2 in nonobese Code(s): E11.9 - TYPE 2 DIABETES MELLITUS WITHOUT COMPLICATIONS Status: Chronic (7) Troponin level elevated Code(s): R79.89 - OTHER SPECIFIED ABNORMAL FINDINGS OF BLOOD CHEMISTRY Status : Acute (8) UTI (urinary tract infection), bacterial Code(s): N39.0 - URINARY TRACT INFECTION, SITE NOT SPECIFIED; A49.9 - BACTERIAL INFECTION, UNSPECIFIED Status: Acute (9) Essential (primary) hypertension Code(s): I10 - ESSENTIAL (PRIMARY) HYPERTENSION Status: Chronic (10) Tobacco use Code(s): Z72.0 - TOBACCO USE Status: Acute - Plan * iv lasix * ct chest * ct head * i/o * hold geodon * mild dose of prn haldol for agitation * pulm consult if needed * cont abx
[2017-10-18] MEDS: cefTRIAXone\\ROCEPHIN 2 GM in Sodium Chloride 0.9% 100 ML IVPB SCH (15:22)
[2017-10-18] MEDS ORDERED: Haloperidol Lactate 5 MG/ML VIAL SLOW IVP PRN (15:35)
--- NOTE | 2017-10-18 20:31 | CT ---
CT OF BRAIN PERFORMED WITHOUT CONTRAST ENHANCEMENT: 10/18/17 HISTORY: Fall with head injury. COMPARISON: 01/21/13 study. There is generalized ventricular and sulcal prominence. No signs of intracerebral hemorrhage or extra -axial fluid collections. Since the previous exam, there has been opacification of the left mastoid a ir cells. There is some mild maxillary sinus mucosal disease. IMPRESSION: No acute intracranial abnormalities. POS: [facility]
--- NOTE | 2017-10-18 21:01 | CT ---
CHEST CT WITHOUT CONTRAST 10/18/17 HISTORY: Shortness of breath. COMPARISON: 10/18/17. TECHNIQUE: Noncontrast chest CT is performed in the axial plain. Coronal reformatted images are submitted for in terpretation. FINDINGS: Limited evaluation of the mediastinum by the lack of IV contrast. Heart size is enlarged. No signific ant pericardial fluid. Coronary artery calcifications identified. The thoracic aorta and abdominal ao rta have an overall normal caliber. No periaortic fat stranding. There is elongation of the distal th oracic aorta. The visualized upper solid organs are unremarkable. Bilateral moderate pleural effusions. Consolidation and adjacent lung parenchyma likely due to atelec tasis. Pneumonia cannot be excluded. No pneumothorax. Central bronchi are patent. There are no lytic or blastic lesions in the osseous structures. Stable chronic compression fracture in the distal thoracic spine. Stable hypodensity in the liver. IMPRESSION: Moderate bilateral pleural effusion with adjacent atelectasis or pneumonia. Continued surveillance. POS: [facility]
[2017-10-19] MEDS: Furosemide 40 MG/4 ML VIAL SLOW IVP SCH ×2 (05:12→14:18)
[2017-10-19] MEDS: Labetalol HCl 100 MG/20 ML VIAL SLOW IVP PRN (05:12)
[2017-10-19 05:21] LABS: #Eosinphils 0.1 thou/uL (0.0-0.7); #Lymphocytes 0.9 thou/uL (1.20-3.40); #Monocytes 0.4 thou/uL (0.11-0.59); #Neutrophils 7.9 thou/uL (1.40-6.50); %Basophils 0.2 % (0.0-1.0); %Lymphocytes 9.9 % (21.0-51.0); %Monocytes 4.7 % (0.0-10.0); %Neutrophils 84.2 % (42.0-75.0); Hemoglobin 13.5 g/dL (14.0-18.0); Mean Corpuscular Hemoglobin 32.9 pg (27.0-31.0); Platelet Count 131 thou/uL (130-400); RBC Distribution Width 16.2 % (11.5-14.5); Red Blood Cell (RBC) Count 4.11 mill/uL (4.70-6.10); White Blood Cell (WBC) Count 9.4 thou/uL (4.8-10.8)
[2017-10-19 05:42] LABS: Albumin 2.6 g/dL (3.4-4.8); Anion Gap 15 mmol/L (10-20); BUN (Urea Nitrogen) 20 mg/dL (8.4-25.7); BUN/Creatinine Ratio 25.32; Calc. Creatinine Clearance 90 mL/min (70-130); Calcium 8.9 mg/dL (7.8-10.44); Carbon Dioxide 24 mmol/L (23-31); Chloride 113 mmol/L (98-107); Estimated GFR-MDRD Greater than 90; Glucose 119 mg/dL (83-110); Phosphorus 2.3 mg/dL (2.3-4.7); Potassium 3.7 mmol/L (3.5-5.1); Sodium 148 mmol/L (136-145)
--- NOTE | 2017-10-19 08:27 | RAD ---
SINGLE VIEW OF THE CHEST: Comparison: 10-16-17 History: Shortness of breath. FINDINGS: Single view of the chest shows an enlarged but stable cardiomediastinal silhouette. The pacemaker is unchanged in position. There is stable multifocal infiltrates in the lungs. No changes compared to th e prior exam. IMPRESSION: Stable exam. POS: [facility]
[2017-10-19] MEDS: Allopurinol 100 MG TAB PO SCH (10:00)
[2017-10-19] MEDS: Aspirin 325 MG TAB PO SCH (10:01)
[2017-10-19] MEDS: Docusate 100 MG CAP PO SCH (10:01)
[2017-10-19] MEDS: Famotidine/PF 20 mg/2ml Vial SLOW IVP SCH (10:02)
[2017-10-19] MEDS: Losartan Potassium 25 MG TAB PO SCH (10:03)
[2017-10-19] MEDS: Gabapentin 300 MG CAP PO SCH ×2 (10:03→11:36)
[2017-10-19] MEDS: Folic Acid 1 MG TAB PO SCH (10:03)
[2017-10-19] MEDS: Oxybutynin ER 5 MG TAB PO SCH (10:03)
[2017-10-19] MEDS: Enoxaparin Sodium 40 MG/0.4 ML SYRINGE SC SCH (10:56)
--- NOTE | 2017-10-19 13:51 | PDOC.PN ---
- Subjective Encounter Start Date: 10/19/17 Encounter Start Time: 13:50 more alert still not answering questions spoke to family they want hospice no n/v - Objective Resuscitation Status: Resuscitation Status DNR:Do Not Resuscitate MAR Reviewed: Yes Vital Signs & Weight: Vital Signs (12 hours) Temp Pulse Resp BP BP BP Pulse Ox 10/19/17 10:58 99.2 F 81 28 H 154/77 H 96 10/19/17 09:04 94 L 10/19/17 09:00 66 24 H 10/19/17 07:37 99.3 F 80 38 H 180/94 H 97 10/19/17 05:12 83 195/91 H 10/19/17 03:58 98.3 F 83 36 H 195/91 H 94 L Weight Weight 206 lb I&O: 10/18/17 10/19/17 10/20/17 06:59 06:59 06:59 Intake Total 686.5 1331 Balance 686.5 1331 Result Diagrams: 10/19/17 04:33 10/19/17 04:33 Phys Exam - Physical Examination opens eyes dry mm Neck: no JVD Respiratory: no rales decreased bs Cardiovascular: no significant murmur Gastrointestinal: soft Musculoskeletal: pulses present Neurological: normal sensation Dx/Plan (1) Acute on chronic diastolic CHF (congestive heart failure) Code(s): I50.33 - ACUTE ON CHRONIC DIASTOLIC (CONGESTIVE) HEART FAILURE Status : Acute (2) Dementia Code(s): F03.90 - UNSPECIFIED DEMENTIA WITHOUT BEHAVIORAL DISTURBANCE Status: Acute (3) Acute respiratory failure Code(s): J96.00 - ACUTE RESPIRATORY FAILURE, UNSP W HYPOXIA OR HYPERCAPNIA Status: Acute (4) Metabolic encephalopathy Code(s): G93.41 - METABOLIC ENCEPHALOPATHY Status: Acute (5) Pneumonia, community acquired Code(s): J18.9 - PNEUMONIA, UNSPECIFIED ORGANISM Status: Acute (6) Diabetes mellitus type 2 in nonobese Code(s): E11.9 - TYPE 2 DIABETES MELLITUS WITHOUT COMPLICATIONS Status: Chronic (7) Troponin level elevated Code(s): R79.89 - OTHER SPECIFIED ABNORMAL FINDINGS OF BLOOD CHEMISTRY Status : Acute (8) UTI (urinary tract infection), bacterial Code(s): N39.0 - URINARY TRACT INFECTION, SITE NOT SPECIFIED; A49.9 - BACTERIAL INFECTION, UNSPECIFIED Status: Acute Comment: mrsa (9) Essential (primary) hypertension Code(s): I10 - ESSENTIAL (PRIMARY) HYPERTENSION Status: Chronic (10) Tobacco use Code(s): Z72.0 - TOBACCO USE Status: Acute - Plan * start vancomycin * cont abx till hospice takes over * cont current mx
[2017-10-19] MEDS ORDERED: Vancomycin HCl 1 GM in Premix Bag 1 BAG IVPB SCH (14:00)
[2017-10-19] MEDS: Potassium Chloride 10 MEQ in Dextrose 5 % And 0.9 % NaCl 1,000 ML IV SCH ×2 (14:18→18:06)
[2017-10-19] MEDS: cefTRIAXone\\ROCEPHIN 2 GM in Sodium Chloride 0.9% 100 ML IVPB SCH (14:18)
[2017-10-19] MEDS ORDERED: Vancomycin HCl 1.5 GM in Sodium Chloride 0.9% 250 ML 300 ML IVPB SCH (15:00)
[2017-10-19] MEDS ORDERED: Morphine 4 MG/ML VIAL SLOW IVP PRN (15:15)
[2017-10-19 17:26] VITALS: BP 162/77; TEMP 99.5
--- NOTE | 2017-10-19 17:53 | DIS ---
DATE OF ADMISSION: 10/14/2017 DATE OF DISCHARGE: 10/19/2017 DISCHARGE DIAGNOSES: Urinary tract infection secondary to methicillin-resistant Staphylococcus aureu s, dementia, pneumonia secondary to strep pneumoniae, chronic systolic congestive heart failure, hype rtension, syndrome of inappropriate antidiuretic hormone, tobacco use, history of atrial fibrillation , history of coronary artery disease and recent diagnosis of lung cancer or tongue cancer. DISCHARGE MEDICATIONS: Per hospice. BRIEF HOSPITAL COURSE: This is an 87-year-old pleasant gentleman came into the hospital with weaknes s, fever, and unable to stand. Please refer to the admitting physician's H&P for further details. T he patient had a CT scan of the head which did not show any acute abnormalities. CT scan of the ches t showed bibasilar pneumonia. He was treated. Blood culture showed strep pneumoniae. Urine culture s showed MRSA. He was put on the appropriate antibiotics. He was agitated in this hospital stay, go t couple of doses of Geodon which made him drowsy. On stopping of the Geodon, he is becoming more al ert. Family understands the poor prognosis of the patient because of poor quality of life and they h ave opted for hospice and arrangements for hospice have been made, and he is going to be transferred to hospice care pretty soon. All questions were answered and facilities and arrangements for hospice are being made. Total time for this discharge took 35 minutes.
== END 2017-10-19 20:25 | disposition hospice, inpatient (51) | DRG 193 ==
LOC: ERS 10:04 → 2NO 12:39
PROVIDERS: ADMIT Internal Medicine; ATTEND Internal Medicine
DX: J13 Pneumonia due to Streptococcus pneumoniae (principal); J96.01 Acute respiratory failure with hypoxia; G93.41 Metabolic encephalopathy; I50.33 Acute on chronic diastolic (congestive) heart failure; R78.81 Bacteremia; C77.9 Secondary and unspecified malignant neoplasm of lymph node, unspecified; E22.2 Syndrome of inappropriate secretion of antidiuretic hormone; C34.90 Malignant neoplasm of unspecified part of unspecified bronchus or lung; B95.62 Methicillin resistant Staphylococcus aureus infection as the cause of diseases classified elsewhere; I48.2 Chronic atrial fibrillation; L97.519 Non-pressure chronic ulcer of other part of right foot with unspecified severity; N39.0 Urinary tract infection, site not specified; I50.22 Chronic systolic (congestive) heart failure; I11.0 Hypertensive heart disease with heart failure; I25.10 Atherosclerotic heart disease of native coronary artery without angina pectoris; Z95.0 Presence of cardiac pacemaker; F17.290 Nicotine dependence, other tobacco product, uncomplicated; M20.42 Other hammer toe(s) (acquired), left foot; M20.41 Other hammer toe(s) (acquired), right foot; L97.529 Non-pressure chronic ulcer of other part of left foot with unspecified severity; Z66 Do not resuscitate; E11.9 Type 2 diabetes mellitus without complications; R79.89 Other specified abnormal findings of blood chemistry; E87.6 Hypokalemia; Z85.810 Personal history of malignant neoplasm of tongue; R45.1 Restlessness and agitation; F03.90 Unspecified dementia, unspecified severity, without behavioral disturbance, psychotic disturbance, mood disturbance, and anxiety
CPT/HCPCS: 36415; 70450; 71010; 71045; 71250; 76705; 80048; 80053; 80069; 80202; 81003; 81015; 83605; 83880; 85025; 87040; 87070; 87077; 87086; 87149; 87186; 87205; 93005; 94640; 94760; 96365; 96368; A4216; G8996-GN-CK; G8996-GN-CN; G8997-GN-CJ; G8997-GN-CL; J0360; J0696; J1650; J1940; J1956; J2060; J2543; J3370; J3480; J3486; J7042; J7050; J7620; S0028